=== PATIENT | female | born 1985 | race Caucasian/White ===

== ENCOUNTER 2018-06-14 18:02 | Inpatient (IN) ==
[2018-06-14] MEDS ORDERED: Sodium Chlor 0.9% Inj 500 ML IV.SIG PRN (18:51)
[2018-06-14] MEDS ORDERED: Sod Chloride 0.9% Inj 1,000 ML IV.CONT PRN (18:51)
[2018-06-14] MEDS ORDERED: Oxytocin 30 Units/500ml Premix 30 UNITS/500 ML BAG IV.SIG PRN (18:51)
[2018-06-14] MEDS ORDERED: fentaNYL Citrate Inj 100 MCG/2 ML Ampul IV.PUSH PRN ×2 (18:51)
[2018-06-14] MEDS ORDERED: Naloxone Inj 0.4 MG/ML Vial IV.PUSH PRN (18:51)
[2018-06-14] MEDS ORDERED: Oxytocin 30 Units/500ml Premix 30 UNITS/500 ML BAG IV.SIG ONE ×2 (19:00→20:00)
[2018-06-14] MEDS ORDERED: Citric Acid/Sodium Citrate Liq 30 ML UDC PO SCH (19:00)
--- NOTE | 2018-06-14 19:19 | P.HPOB ---
History of Present Illness Primary Care Physician: NOT REQUIRED Chief Complaint: Induction of labor at 38 weeks for IUGR History of Present Illness: 32-year-old female at 38 weeks presents for induction of labor due to intrauterine growth restriction by ultrasound last . No complications with this . Denies any uterine contractions, loss of fluids, vaginal bleeding. Is feeling baby be moving. Denies any chest pain or shortness of breath or leg pain. Had 2 previous vaginal deliveries 1 at term and one . Had 2 spontaneous abortions. Per one of her previous pregnancies was induced due to findings on the cardiac monitoring. During this has had no other complications and normal lab values. Had an abnormal Pap smear. Was GBS negative. Previous medical conditions include depression and PTSD treated with prescription marijuana vapor. Also takes vitamins. Denies cigarette or alcohol or any other drug use. [facility] Weeks Gestation:: 38 Para: 5 : 2 Total # of Abortions (Spontaneous & Elective): 2 - Inpatient Certification I certify that the inpatient services were ordered in accordance with Medicare regulations governing the order. This includes certification that hospital inpatient services are reasonable and necessary and in the case of services not specified as inpatient-only under 42 CFR 419.22(n), that they are appropriately provided as inpatient services in accordance to with the 2-midnight benchmark under 43 CFR 412.3(e) Review of Systems Constitutional: Denies chills, Denies fever(s) Cardiovascular: Denies chest pain Respiratory: Denies shortness of breath Musculoskeletal: Denies joint swelling Neurologic: Denies headache(s) Medications and Allergies Allergies Allergy/AdvReac Type Severity Reaction Status Date / Time cephalexin Allergy Severe HIVES Verified 05/25/18 12:01 nitrofurantoin Allergy Severe HIVES Verified 05/25/18 12:01 amoxicillin Allergy Unknown Hives Verified 05/25/18 12:01 clavulanic acid Allergy Unknown Hives Verified 05/25/18 12:01 Home Medications Medication Instructions Recorded Confirmed Type PNV cmb#95-ferrous fumarate-FA 1 tab PO DAILY 05/25/18 06/14/18 History [] Exam Vital signs: Vital Signs 06/14/18 18:21 Temperature 98.6 F Pulse Rate 82 Respiratory Rate 18 Blood Pressure 82/64 L Narrative: GENERAL: Well-nourished, well-developed patient. SKIN: Warm and dry. HEAD: Normocephalic and atraumatic. EYES: No scleral icterus. No injection or drainage. ENT: No nasal drainage noted. Mucous membranes pink. Airway patent. NECK: Supple, trachea midline. No JVD. CARDIOVASCULAR: Regular rate and rhythm without murmurs, gallops, or rubs. RESPIRATORY: Breath sounds equal bilaterally. No accessory muscle use. BREASTS: Bilateral exam showed no masses , no retractions, no nipple discharge. ABDOMEN/GI: Abdomen soft, non-tender, bowel sounds present, no rebound, no guarding GENITOURINARY: External Genitalia: intact and normal in appearance BUS glands: [-] Cervix: posterior Dilatation: 1 Effacement: 20 Station: -4 Presentation: vertex Membranes: intact Uterine Contractions: none FHT's: Category: 1 Baseline: 148 Reactive: yes Variability: moderate Decels: none EXTREMITIES: No cyanosis or edema. BACK: Nontender without obvious deformity. No CVA tenderness. NEUROLOGICAL: Awake and alert. Motor and sensory grossly within normal limits. Five out of 5 muscle strength in all muscle groups. Normal speech. Results - Labs CBC & Chem 7: 06/14/18 18:25 Group B Strep: Negative Caprini VTE Risk Assessment Caprini VTE Risk Assessment: Moderate/High Risk (score >= 2) Caprini Risk Assessment Model: Point Value = 1 Point Value = 2 Point Value = 3 Point Value = 5 Age 41-60 Minor surgery BMI > 25 kg/m2 Swollen legs Varicose veins or History of unexplained or recurrent spontaneous Oral contraceptives or hormone replacement Sepsis (< 1 month) Serious lung disease, including pneumonia (< 1 month) Abnormal pulmonary function Acute myocardial infarction Congestive heart failure (< 1 month) History of inflammatory bowel disease Medical patient at bed rest Age 61-74 Arthroscopic surgery Major open surgery (> 45 min) Laparoscopic surgery (> 45 min) Malignancy Confined to bed (> 72 hours) Immobilizing plaster cast Central venous access Age >= 75 History of VTE Family history of VTE Factor V Leiden Prothrombin [id number] Lupus anticoagulant Anticardiolipin antibodies Elevated serum homocysteine Heparin-induced thrombocytopenia Other congenital or acquired thrombophilia Stroke (< 1 month) Elective arthroplasty Hip, pelvis, or leg fracture Acute spinal cord injury (< 1 month) Prophylaxis Regimen: Total Risk Factor Score Risk Level Prophylaxis Regimen 0-1 Low Early ambulation 2 Moderate Order ONE of the following: *Sequential Compression Device (SCD) *Heparin 5000 units SQ BID 3-4 Higher Order ONE of the following medications: *Heparin 5000 units SQ TID *Enoxaparin/Lovenox 40 mg SQ daily (WT < 150 kg, CrCl > 30 mL/min) *Enoxaparin/Lovenox 30 mg SQ daily (WT < 150 kg, CrCl > 10-29 mL/min) *Enoxaparin/Lovenox 30 mg SQ BID (WT < 150 kg, CrCl > 30 mL/min) AND/OR *Sequential Compression Device (SCD) 5 or more Highest Order ONE of the following medications: *Heparin 5000 units SQ TID (Preferred with Epidurals) *Enoxaparin/Lovenox 40 mg SQ daily (WT < 150 kg, CrCl > 30 mL/min) *Enoxaparin/Lovenox 30 mg SQ daily (WT < 150 kg, CrCl > 10-29 mL/min) *Enoxaparin/Lovenox 30 mg SQ BID (WT < 150 kg, CrCl > 30 mL/min) AND *Sequential Compression Device (SCD) Assessment and Plan - Diagnosis (1) Intrauterine growth restriction (IUGR) affecting care of mother Code(s): O36.5990 - Maternal care for other known or suspected poor growth , unspecified trimester, not applicable or unspecified Status: Acute Plan: 32-year-old female at 38 weeks presents for induction of labor due to intrauterine growth restriction by ultrasound. FHT category 1 reassuring. GBS negative. Cervical exam 1, 20%, -4. -Admit to labor and delivery -Cytotec bugle 25 mg
[2018-06-14 19:23] LABS: Baso % (Auto) 0.4 % (0.0-2.0); Eos # (Auto) 0.1 th/mm3 (0.0-0.4); Eos % (Auto) 1.3 % (0.0-4.0); Hemoglobin 11.7 gm/dL (11.6-15.3); Lymph # (Auto) 1.8 th/mm3 (1.0-4.8); Lymph % (Auto) 19.5 % (9.0-44.0); Mean Corpuscular HGB Conc 34.4 % (32.0-36.0); Mean Corpuscular Hemoglobin 34.2 pg (27.0-34.0); Mean Corpuscular Volume 99.3 fL (80.0-100.0); Mean Platelet Volume 9.8 fL (7.0-11.0); Mono # (Auto) 0.6 th/mm3 (0.0-0.9); Mono % (Auto) 6.5 % (0.0-8.0); Neut # (Auto) 6.7 th/mm3 (1.8-7.7); Neut % (Auto) 72.3 % (16.0-70.0); Platelet Count 183 th/mm3 (150-450); Red Blood Count 3.43 mil/mm3 (4.00-5.30); White Blood Count 9.3 th/mm3 (4.0-11.0)
[2018-06-14 19:30] LABS: Bacteria,Urine Rare /hpf; Bilirubin,Urine Negative (Negative); Clarity,Urine Hazy (Clear); Color,Urine Amber (Yellw/Straw); Glucose,Urine (UA) Negative (Negative); Leukocyte Esterase,Urine Negative (Negative); Mucus,Urine Many /lpf (Occasional); Nitrite,Urine Negative (Negative); Specific Gravity,Urine 1.025 (1.002-1.035); Squamous Epithelial Cell,Urine 3 /hpf (0-5)
[2018-06-14 19:31] LABS: Amphetamine Urine With Conf Neg (Neg); Benzodiazepine Urine With Conf Neg (Neg)
[2018-06-15] MEDS ORDERED: Oxytocin 30 Units/500ml Premix 30 UNITS/500 ML BAG IV.SIG PRN (05:01)
--- NOTE | 2018-06-15 14:19 | P.OBLABOR ---
Subjective Interval history: Patient seen and examined at bedside. Complains of being nauseous. Otherwise in no acute distress. Objective Vital Signs: Vital Signs - 8 hr 06/15/18 06:30 06/15/18 07:29 06/15/18 07:30 Temperature 98.4 F 98.0 F Pulse Rate 54 L 61 Respiratory Rate 18 16 Blood Pressure 123/82 130/114 H 06/15/18 08:00 06/15/18 09:00 06/15/18 09:30 Temperature Pulse Rate 53 L 61 Respiratory Rate Blood Pressure 113/65 119/69 107/58 L 06/15/18 10:00 06/15/18 10:30 06/15/18 12:00 Temperature 98.1 F Pulse Rate 60 55 L Respiratory Rate 18 16 Blood Pressure 118/60 112/62 06/15/18 12:30 06/15/18 13:01 06/15/18 13:30 Temperature 98.6 F Pulse Rate 70 72 Respiratory Rate 18 20 Blood Pressure 122/74 113/71 06/15/18 13:31 Temperature Pulse Rate 59 L Respiratory Rate Blood Pressure 108/53 L Objective: Pelvic Exam: Cervix: posterior Dilatation:2cm Effacement: 60 Station: -3 Presentation: cephalic Membranes: ruptured FHT's: Category: 1 Baseline: 130 bmp Reactive: yes Variability: moderate Decels: none Assessment and Plan - Diagnosis (1) Intrauterine growth restriction (IUGR) affecting care of mother Code(s): O36.5990 - Maternal care for other known or suspected poor growth , unspecified trimester, not applicable or unspecified Status: Acute - Plan 32-year-old female at 38 weeks presents for induction of labor due to intrauterine growth restriction by ultrasound. FHT category 1 reassuring. GBS negative. S/P Buccal Cytotec 25 mg. -Cervical Check: 60/-3 -AROM: Clear fluids. -On Pitocin: 12 units. -Routine Labor Care. -Recheck in one hour. -Zofran for nausea -Discussed with Dr. Salter
[2018-06-15] MEDS ORDERED: Diphtheria/Tetanus/Pertussis Vaccine Inj 0.5 ML Syringe IM ONE (16:00)
--- NOTE | 2018-06-15 16:37 | P.OBLABOR ---
Subjective Interval history: Patient seen and examined at bedside. Feeling contractions. Slightly uncomfortable. Objective Vital Signs: Vital Signs - 8 hr 06/15/18 09:00 06/15/18 09:30 06/15/18 10:00 Temperature Pulse Rate 53 L 61 60 Respiratory Rate 18 Blood Pressure 119/69 107/58 L 118/60 06/15/18 10:30 06/15/18 12:00 06/15/18 12:30 Temperature 98.1 F 98.6 F Pulse Rate 55 L 70 Respiratory Rate 16 18 Blood Pressure 112/62 122/74 06/15/18 13:01 06/15/18 13:30 06/15/18 13:31 Temperature Pulse Rate 72 59 L Respiratory Rate 20 Blood Pressure 113/71 108/53 L 06/15/18 14:30 06/15/18 15:01 06/15/18 15:12 Temperature 98.4 F Pulse Rate 52 L 50 L 18 L Respiratory Rate 18 18 Blood Pressure 123/72 106/60 06/15/18 15:20 06/15/18 16:05 06/15/18 16:10 Temperature Pulse Rate 54 L 60 57 L Respiratory Rate 18 Blood Pressure 116/82 06/15/18 16:15 Temperature Pulse Rate 61 Respiratory Rate Blood Pressure Objective: Pelvic Exam: Cervix: mid position Dilatation: 3-4 cm Effacement: 70 Station: -2 Presentation: cephalic Membranes: ruptured Uterine Contractions: every 3 mins FHT's: Category: 1 Baseline:130 bmp Reactive: yes Variability: moderate Decels: none Assessment and Plan - Diagnosis (1) Intrauterine growth restriction (IUGR) affecting care of mother Code(s): O36.5990 - Maternal care for other known or suspected poor growth , unspecified trimester, not applicable or unspecified Status: Acute - Plan 32-year-old female at 38 weeks presents for induction of labor due to intrauterine growth restriction by ultrasound. FHT category 1 reassuring. GBS negative. S/P Buccal Cytotec 25 mg. -Cervical Check: 3-4cm/70/-2 -On Pitocin: 14 units. -Routine Labor Care. -Discussed with Dr. Salter
[2018-06-15] MEDS ORDERED: fentaNYL 2MCG-Bupiv 0.125% Epi 150 ML EPIDURAL ONE (17:26)
[2018-06-15] MEDS ORDERED: Lidocaine PF 1% Inj 5 ML Vial ONE (17:30)
[2018-06-15] MEDS ORDERED: Lidocaaine 1.5%/Epinephrine 1:200,000 PF Inj 5 ML Amp ONE (17:30)
[2018-06-15] MEDS ORDERED: fentaNYL 2MCG-Bupiv 0.125% Epi 150 ML EPIDURAL PRN (18:19)
[2018-06-15] MEDS ORDERED: fentaNYL Citrate Inj 100 MCG/2 ML Ampul EPIDURAL ONE (18:19)
--- NOTE | 2018-06-15 22:12 | P.OBDELI ---
Weeks Gestation: 38 Medical Induction Start Date: 06/15/18 Artificial Rupture of Membrane: Yes Anesthesia: Epidural Episiotomy: none Vaginal Delivery: Normal Presentation: Occiput anterior Nuchal Cord: None Delayed Cord Clamping (45 sec): Yes Placenta: Spontaneous delivery Laceration: None Estimated blood loss (mL): 200 Infant: Male Male A Infant Delivery Date: 06/15/18 Delivery Time: 21:44 Weight: 2.185 kg (SGA baby) score (1 min): 9 score (5 min): 9 (placenta to path)
[2018-06-15] MEDS ORDERED: Benzocaine 20% Top Spray 60 ML Can TOPICAL PRN (22:14)
[2018-06-15] MEDS ORDERED: Witch Hazel 50%/Glyderin 12.5% 40 Pad Jar RECTAL PRN (22:14)
[2018-06-15] MEDS ORDERED: Naloxone Inj 0.4 MG/ML Vial IV.PUSH PRN (22:14)
[2018-06-15] MEDS ORDERED: Zolpidem Tartrate 5 MG Tablet PO PRN (22:14)
[2018-06-15] MEDS ORDERED: Bisacodyl 10 MG Supp RECTAL PRN (22:14)
[2018-06-15] MEDS ORDERED: Oxytocin 30 Units/500ml Premix 30 UNITS/500 ML BAG IV.CONT PRN (22:14)
[2018-06-15] MEDS ORDERED: Acetaminophen 325 MG Tablet PO PRN (22:14)
--- NOTE | 2018-06-16 08:42 | P.PNOB ---
Subjective Interval history: Patient is a 32 year-old delivered at 38 weeks. Patient is day 1 after . Patient's pain is well-controlled. Patient reports eating and drinking without any nausea or vomiting. Patient reports minimal bleeding. Patient has passed gas but no bowel movements. Patient is walking without lower extremity pain or shortness of breath. Patient reports desire for contraception and is breast-feeding and bottle feeding. Objective Vital Signs/I&O: Vital Signs 06/15/18 09:00 06/15/18 09:30 06/15/18 10:00 Temperature Pulse Rate 53 L 61 60 Respiratory Rate 18 Blood Pressure 119/69 107/58 L 118/60 06/15/18 10:30 06/15/18 12:00 06/15/18 12:30 Temperature 98.1 F 98.6 F Pulse Rate 55 L 70 Respiratory Rate 16 18 Blood Pressure 112/62 122/74 06/15/18 13:01 06/15/18 13:30 06/15/18 13:31 Temperature Pulse Rate 72 59 L Respiratory Rate 20 Blood Pressure 113/71 108/53 L 06/15/18 14:30 06/15/18 15:01 06/15/18 15:12 Temperature 98.4 F Pulse Rate 52 L 50 L 18 L Respiratory Rate 18 18 Blood Pressure 123/72 106/60 06/15/18 15:20 06/15/18 16:05 06/15/18 16:10 Temperature Pulse Rate 54 L 60 57 L Respiratory Rate 18 Blood Pressure 116/82 06/15/18 16:15 06/15/18 16:39 06/15/18 17:41 Temperature 98.5 F Pulse Rate 61 58 L Respiratory Rate Blood Pressure 122/74 06/15/18 17:55 06/15/18 18:11 06/15/18 18:25 Temperature 98.1 F Pulse Rate 67 60 56 L Respiratory Rate Blood Pressure 122/93 H 74/52 L 130/59 L 06/15/18 18:45 06/15/18 18:55 06/15/18 19:10 Temperature Pulse Rate 55 L 59 L 55 L Respiratory Rate 18 Blood Pressure 130/67 135/73 06/15/18 19:15 06/15/18 19:25 06/15/18 19:31 Temperature Pulse Rate 57 L 52 L 97 H Respiratory Rate Blood Pressure 139/90 143/84 H 06/15/18 20:16 06/15/18 20:30 06/15/18 20:45 Temperature Pulse Rate 56 L 56 L 52 L Respiratory Rate Blood Pressure 126/67 112/58 L 116/59 L 06/15/18 21:00 06/15/18 21:16 06/15/18 21:31 Temperature 98.2 F Pulse Rate 53 L 85 Respiratory Rate 15 Blood Pressure 118/68 111/59 L 06/15/18 21:46 06/15/18 21:55 06/15/18 22:00 Temperature 98.2 F Pulse Rate 67 Respiratory Rate 17 Blood Pressure 124/81 131/66 06/15/18 22:05 06/15/18 22:16 06/15/18 22:20 Temperature 98.2 F Pulse Rate 59 L 57 L Respiratory Rate 18 19 Blood Pressure 110/67 137/50 L 06/15/18 22:35 06/15/18 22:50 06/15/18 23:01 Temperature Pulse Rate 100 H Respiratory Rate 18 18 Blood Pressure 120/71 06/15/18 23:55 Temperature 97.7 F Pulse Rate 55 L Respiratory Rate 17 Blood Pressure 111/62 Intake & Output 06/15/18 06/16/18 06/16/18 18:59 06:59 18:59 Intake Total 1000 / 1000 Balance 1000 / 1000 Intake: IV 1000 / 1000 LR 1000 mL Inj 1,000 ML @ 125 1000 / 1000 mls/hr IV.CONT .Q8H [facility] Rx#: [id number] Result Diagrams: 06/14/18 18:25 Objective Remarks: GENERAL: Well-nourished, well-developed patient. CARDIOVASCULAR: Regular rate and rhythm without murmurs, gallops, or rubs. RESPIRATORY: Breath sounds equal bilaterally. No accessory muscle use. ABDOMEN/GI: Abdomen soft, non-tender. Fundus: Firm, non-tender at umbilicus. GENITOURINARY: Light to moderate bleeding. EXTREMITIES: No cyanosis or edema, non-tender, without signs of DVT. Medications and IVs: Active Medications Acetaminophen (Tylenol) 650 mg PO Q4H PRN PRN Reason: PAIN SCALE 1 TO 2 Al Hydroxide/Mg Hydroxide (Milk Of Magnesia Liq) 30 ml PO Q12H PRN PRN Reason: Mild Constipation Benzocaine (Americaine 20% [place]) 1 spray TOPICAL Q4H PRN PRN Reason: For Perineum Discomfort Last Admin: 06/16/18 00:43 Dose: 1 spray Bisacodyl (Dulcolax Supp) 10 mg RECTAL DAILY PRN PRN Reason: SEVERE CONSITIPATION Citric Acid/Sodium Citrate (Sodium Citrate/Citric Acid Liq) 30 ml PO [employer] [facility] Stop: 06/18/18 18:59 Ephedrine Sulfate (Ephedrine/Ns Syringe) 10 mg IV.PUSH UNSCH PRN PRN Reason: SEE LABEL COMMENTS Stop: 06/16/18 18:19 Last Admin: 06/15/18 18:25 Dose: 10 mg Fentanyl Citrate (Fentanyl Inj) 50 mcg IV.PUSH Q1H PRN PRN Reason: Pain Scale 3 - 5 Fentanyl Citrate (Fentanyl Inj) 100 mcg IV.PUSH Q1H PRN PRN Reason: PAIN SCALE 6 TO 10 Lactated Ringer's (Lr 1000 Ml Inj) 1,000 mls @ 125 mls/hr IV.CONT .Q8H [facility] Last Admin: 06/16/18 06:52 Dose: Not Given Lactated Ringer's (Lr 1000 Ml Inj) 1,000 mls @ 3,000 mls/hr IV.SIG UNSCH PRN PRN Reason: compromise or epidural Last Admin: 06/15/18 18:24 Dose: 3,000 mls/hr Sodium Chloride (Ns Inj) 500 mls @ 1,000 mls/hr IV.SIG UNSCH PRN PRN Reason: SEE LABEL COMMENTS Sodium Chloride (Ns Inj) 1,000 mls @ 100 mls/hr IV.CONT .Q10H PRN PRN Reason: SEE LABEL COMMENTS Oxytocin (Pitocin 30 Units/Ns 500 Ml Premix) 30 units in 500 mls @ 2 mls/hr IV.SIG TITRATE PRN; Protocol PRN Reason: For induction of labor Last Admin: 06/15/18 08:03 Dose: 2 milliunit/min, 2 mls/hr Fentanyl/Bupivacaine/Sodium Chlor (Fentanyl 2 Mcg-Bupiv 0.125% Epi) 150 mls @ 10 mls/hr EPIDURAL PRN PRN PRN Reason: for Labor Pain Last Admin: 06/15/18 18:23 Dose: 10 mls/hr Oxytocin (Pitocin 30 Units/Ns 500 Ml Premix) 30 units in 500 mls @ 100 mls/hr IV.CONT UNSCH PRN PRN Reason: Heavy bleeding Ibuprofen (Motrin) 800 mg PO Q8H PRN PRN Reason: For Cramping Last Admin: 06/15/18 23:17 Dose: 800 mg Lactulose (Lactulose Liq) 30 ml PO DAILY PRN PRN Reason: SEVERE CONSITIPATION Lidocaine HCl (Xylocaine 1% Inj) 10 ml INFILTRATN PRN PRN PRN Reason: For episiotomy repair Stop: 06/16/18 18:50 Lidocaine HCl (Xylocaine 1% Inj) 0.1 ml I-DERMAL PRN PRN PRN Reason: For IV start Stop: 06/17/18 18:50 Measles/Mumps/Rubella Vaccine Live (M-M-R Ii Vaccine Inj) 0.5 ml SQ .ONCE ONE Stop: 06/16/18 16:01 Mineral Oil (Muri-Lube Oil) 10 ml TOPICAL PRN PRN PRN Reason: PRN perineal massage Miscellaneous Information (Misc Information) 1 each OTHER UNSCH PRN PRN Reason: SEE LABEL COMMENTS Stop: 06/16/18 18:19 Miscellaneous Information (Misc Information) 1 each OTHER UNSCH PRN PRN Reason: SEE LABEL COMMENTS Stop: 06/16/18 18:19 Misoprostol (Cytotec) 25 mcg PO Q4H [facility] Last Admin: 06/16/18 06:52 Dose: Not Given Naloxone HCl (Narcan Inj) 0.1 mg IV.PUSH Q2M PRN PRN Reason: for opiate reversal Naloxone HCl (Narcan Inj) 0.1 mg IV.PUSH Q2M PRN PRN Reason: for opiate reversal Ondansetron HCl (Zofran Inj) 4 mg IV.PUSH Q6H PRN PRN Reason: NAUSEA OR VOMITING Last Admin: 06/15/18 14:16 Dose: 4 mg Ondansetron HCl (Zofran Odt) 4 mg PO Q6H PRN PRN Reason: NAUSEA OR VOMITING Oxycodone/Acetaminophen (Percocet 5/325 Mg) 1 tab PO Q4H PRN PRN Reason: PAIN SCALE 3 TO 5 Senna/Docusate Sodium (Vanessa-Colace) 1 tab PO BID JOYA Sennosides (Senokot) 17.2 mg PO Q12H PRN PRN Reason: Moderate Constipation Sodium Chloride (Ns Flush) 2 ml IV.FLUSH BID JOYA Sodium Chloride (Ns Flush) 2 ml IV.FLUSH PRN PRN PRN Reason: FLUSH AFTER USING IV ACCESS Witch Carmen/Glycerin (Tucks Pads) 1 applicatio RECTAL QID PRN PRN Reason: HEMORRHOIDS Last Admin: 06/16/18 00:43 Dose: 1 applicatio Zolpidem Tartrate (Ambien) 5 mg PO HS PRN PRN Reason: SLEEP Assessment and Plan - Diagnosis (1) Intrauterine growth restriction (IUGR) affecting care of mother Code(s): O36.5990 - Maternal care for other known or suspected poor growth , unspecified trimester, not applicable or unspecified Status: Resolved (2) Vaginal delivery Code(s): O80 - Encounter for full-term uncomplicated delivery Status: Resolved (3) 38 weeks gestation of Code(s): Z3A.38 - 38 weeks gestation of Status: Resolved - Plan Patient is a 32 year-old delivered at 38 weeks. Patient is day 1 after . Continue routine care. Motrin and Percocet when necessary for pain. Encourage OOB Pelvic rest for 6 weeks will need follow-up appointment at that time. Anticipate discharge tomorrow Tdap ordered. Discussed with Dr. Salter.
[2018-06-16] MEDS: Senna/Docusate Sodium 8.6/50 MG Tablet PO SCH ×2 (09:21→20:00)
[2018-06-16] MEDS ORDERED: Measles/Mumps/Rubella Vaccine Inj 0.5 ML Vial SQ ONE (16:00)
[2018-06-16 20:00] VITALS: TEMP 97.9
[2018-06-17] MEDS ORDERED: Diphtheria/Tetanus/Pertussis Vaccine Inj 0.5 ML Syringe IM ONE (00:02)
[2018-06-17 08:04] VITALS: BP 120/76; PULSE 65; RESP 20
--- NOTE | 2018-06-17 08:04 | P.PNOB ---
Subjective Interval history: Patient is a 32 year-old delivered at 38 weeks. Patient is day 2 after . AFVSS. Patient's pain is well-controlled. Patient reports eating and drinking without any nausea or vomiting. Patient reports minimal bleeding. Patient has passed gas but no bowel movements. Patient is walking without lower extremity pain or shortness of breath. Patient reports desire for contraception and will talk to her OB provider during her visit in 6 weeks. She is breast-feeding and bottle feeding and is ready to be discharged home today. Objective Vital Signs/I&O: Vital Signs 06/16/18 08:40 06/16/18 17:23 06/16/18 17:29 Temperature 98.0 F 98.5 F Pulse Rate 57 L 62 Respiratory Rate 16 20 Blood Pressure 120/73 110/73 06/16/18 19:59 Temperature 97.9 F Pulse Rate 63 Respiratory Rate 18 Blood Pressure 112/67 Result Diagrams: 06/14/18 18:25 Objective Remarks: GENERAL: Well-nourished, well-developed patient. CARDIOVASCULAR: Regular rate and rhythm without murmurs, gallops, or rubs. RESPIRATORY: Breath sounds equal bilaterally. No accessory muscle use. ABDOMEN/GI: Abdomen soft, non-tender. Fundus: Firm, non-tender at umbilicus. GENITOURINARY: Light to moderate bleeding. EXTREMITIES: No cyanosis or edema, non-tender, without signs of DVT. Medications and IVs: Active Medications Acetaminophen (Tylenol) 650 mg PO Q4H PRN PRN Reason: PAIN SCALE 1 TO 2 Al Hydroxide/Mg Hydroxide (Milk Of Magnesia Liq) 30 ml PO Q12H PRN PRN Reason: Mild Constipation Benzocaine (Americaine 20% Top [place]) 1 spray TOPICAL Q4H PRN PRN Reason: For Perineum Discomfort Last Admin: 06/16/18 00:43 Dose: 1 spray Bisacodyl (Dulcolax Supp) 10 mg RECTAL DAILY PRN PRN Reason: SEVERE CONSITIPATION Citric Acid/Sodium Citrate (Sodium Citrate/Citric Acid Liq) 30 ml PO [employer] [facility] Stop: 06/18/18 18:59 Fentanyl Citrate (Fentanyl Inj) 50 mcg IV.PUSH Q1H PRN PRN Reason: Pain Scale 3 - 5 Fentanyl Citrate (Fentanyl Inj) 100 mcg IV.PUSH Q1H PRN PRN Reason: PAIN SCALE 6 TO 10 Lactated Ringer's (Lr 1000 Ml Inj) 1,000 mls @ 125 mls/hr IV.CONT .Q8H [facility] Last Admin: 06/17/18 00:32 Dose: Not Given Lactated Ringer's (Lr 1000 Ml Inj) 1,000 mls @ 3,000 mls/hr IV.SIG UNSCH PRN PRN Reason: compromise or epidural Last Admin: 06/15/18 18:24 Dose: 3,000 mls/hr Sodium Chloride (Ns Inj) 500 mls @ 1,000 mls/hr IV.SIG UNSCH PRN PRN Reason: SEE LABEL COMMENTS Sodium Chloride (Ns Inj) 1,000 mls @ 100 mls/hr IV.CONT .Q10H PRN PRN Reason: SEE LABEL COMMENTS Oxytocin (Pitocin 30 Units/Ns 500 Ml Premix) 30 units in 500 mls @ 2 mls/hr IV.SIG TITRATE PRN; Protocol PRN Reason: For induction of labor Last Admin: 06/15/18 08:03 Dose: 2 milliunit/min, 2 mls/hr Fentanyl/Bupivacaine/Sodium Chlor (Fentanyl 2 Mcg-Bupiv 0.125% Epi) 150 mls @ 10 mls/hr EPIDURAL PRN PRN PRN Reason: for Labor Pain Last Admin: 06/15/18 18:23 Dose: 10 mls/hr Oxytocin (Pitocin 30 Units/Ns 500 Ml Premix) 30 units in 500 mls @ 100 mls/hr IV.CONT UNSCH PRN PRN Reason: Heavy bleeding Ibuprofen (Motrin) 800 mg PO Q8H PRN PRN Reason: For Cramping Last Admin: 06/16/18 20:00 Dose: 800 mg Lactulose (Lactulose Liq) 30 ml PO DAILY PRN PRN Reason: SEVERE CONSITIPATION Lidocaine HCl (Xylocaine 1% Inj) 0.1 ml I-DERMAL PRN PRN PRN Reason: For IV start Stop: 06/17/18 18:50 Mineral Oil (Muri-Lube Oil) 10 ml TOPICAL PRN PRN PRN Reason: PRN perineal massage Naloxone HCl (Narcan Inj) 0.1 mg IV.PUSH Q2M PRN PRN Reason: for opiate reversal Naloxone HCl (Narcan Inj) 0.1 mg IV.PUSH Q2M PRN PRN Reason: for opiate reversal Ondansetron HCl (Zofran Inj) 4 mg IV.PUSH Q6H PRN PRN Reason: NAUSEA OR VOMITING Last Admin: 06/15/18 14:16 Dose: 4 mg Ondansetron HCl (Zofran Odt) 4 mg PO Q6H PRN PRN Reason: NAUSEA OR VOMITING Oxycodone/Acetaminophen (Percocet 5/325 Mg) 1 tab PO Q4H PRN PRN Reason: PAIN SCALE 3 TO 5 Senna/Docusate Sodium (Vanessa-Colace) 1 tab PO BID [facility]YA Last Admin: 06/16/18 20:00 Dose: 1 tab Sennosides (Senokot) 17.2 mg PO Q12H PRN PRN Reason: Moderate Constipation Sodium Chloride (Ns Flush) 2 ml IV.FLUSH BID JOYA Sodium Chloride (Ns Flush) 2 ml IV.FLUSH PRN PRN PRN Reason: FLUSH AFTER USING IV ACCESS Witch [place]en/Glycerin (Tucks Pads) 1 applicatio RECTAL QID PRN PRN Reason: HEMORRHOIDS Last Admin: 06/16/18 00:43 Dose: 1 applicatio Zolpidem Tartrate (Ambien) 5 mg PO HS PRN PRN Reason: SLEEP Assessment and Plan - Diagnosis (1) Intrauterine growth restriction (IUGR) affecting care of mother Code(s): O36.5990 - Maternal care for other known or suspected poor growth , unspecified trimester, not applicable or unspecified Status: Resolved (2) Vaginal delivery Code(s): O80 - Encounter for full-term uncomplicated delivery Status: Resolved (3) 38 weeks gestation of Code(s): Z3A.38 - 38 weeks gestation of Status: Resolved - Plan Patient is a 32 year-old delivered at 38 weeks. Patient is day 2 after . Continue routine care. Motrin and Percocet when necessary for pain. Encourage OOB. Pelvic rest for 6 weeks will need follow-up appointment at that time. Contraception: Will discuss with OB provider at visit Breast and Bottle feeding. Anticipate discharge today. Tdap ordered. Discussed with Dr. GILES
[2018-06-17] MEDS: Senna/Docusate Sodium 8.6/50 MG Tablet PO SCH (10:56)
== END 2018-06-17 15:13 | disposition home or self-care (01) ==
LOC: H2E 18:02 → H1EA 06-15 23:26
PROVIDERS: ADMIT Obstetrics & Gynecology; ATTEND Obstetrics & Gynecology